=== PATIENT | male | born 1965 | race Caucasian/White ===

== ENCOUNTER 2021-12-28 06:25 | Day surgery (SDC) | payer OTHER ==
[~2021-12-28] VITALS: Ht 167.6 cm; Wt 79.1 kg
--- NOTE | ~2021-12-28 | OR ---
[facility] [address], [place] [address] Draft DATE OF OPERATION: 12/28/2021 SURGEON: Dolores Phillips MD, PH.D. PREOPERATIVE DIAGNOSIS: Prostate adenocarcinoma. POSTOPERATIVE DIAGNOSIS: Prostate adenocarcinoma. PROCEDURE: Rectal ultrasound-guided implantation of radioactive iodine-125 seeds into the prostate gland. ANESTHESIA: General. ESTIMATED BLOOD LOSS: Minimal. COMPLICATIONS: None. ANTIBIOTICS: IV levofloxacin. INDICATIONS FOR PROCEDURE: Juan Manuel Kirkland is a 56-year-old gentleman who was diagnosed with a stage T1c, [place] grade 4+3 equals 7, PSA 35.0 prostate adenocarcinoma. He has received neoadjuvant and concurrent hormone therapy along with external beam radiation therapy to a dose of 45 Gy to the pelvic lymph nodes, prostate gland, and seminal vesicles, ending on November 21, 2021. He is receiving a permanent radioactive seed implant boost today. PRESCRIPTION DOSE: 110 Gy with iodine-125 seeds with 0.255 mCi activity. OPERATIVE DESCRIPTION: Following induction of adequate anesthesia, the patient was placed in the treatment planning dorsal lithotomy position. The perineum was prepped with Betadine and a Ortiz catheter was inserted into the bladder with some difficulty. Ultimately, a 12-[place] PATIENT NAME: JUAN MANUEL KIRKLAND OPERATIVE REPORT DATE OF : 69 REPORT #: [id number] PHYSICIAN: DOLORES PHILLIPS PCP: Kelly HARTLEY MD REPORT IS CONFIDENTIAL AND NOT TO BE RELEASED WITHOUT AUTHORIZATION [facility] [address], [place] [address] Draft catheter was successfully placed. The scrotum was elevated onto the abdominal wall and secured with Ioban. The fixation support system was fixed to the table and the ultrasound probe was affixed to the system. Transrectal ultrasound examination of the prostate was performed with a 6 MHz probe, taking sagittal and transverse views to localize the prostate gland and to make sure that the images conformed to the preoperative plan. Once the proper angulation and position were obtained, the apparatus was fixed in position. The template was then attached to the apparatus. Then, individual preloaded needles were inserted, one needle at a time through the template and perineal skin and into the prostate gland according to the preoperative plan. Unfortunately, once the needles were first placed into the patient, the patient lifted his pelvis and moved several inches away from the probe. Additional sedation was administered, and needles were removed. Some time was spent replacing the ultrasound probe and ensuring that the prostate gland was in the proper position relative to the template needle positions. [place] were ultimately placed again into the prostate gland. Each individual needle was identified on the ultrasound images and inserted into position as close as possible to the pretreatment plan on axial images. Two anchor needles were placed initially to help stabilize the prostate gland. Then, starting anteriorly, one row of needles was placed first. The proper depth of each needle was confirmed on sagittal images and also by measuring the distance from the template to the hub of each needle with a ruler. Then, needles were slowly withdrawn with the stylet in place, so that the stranded seeds were placed in the prostate gland in the proper position. Then, subsequent rows of needles were placed, one at a time, with placement of all the seeds from each row before proceeding to the next row. AP pelvic x-rays were taken periodically to confirm the proper position of the radioactive seeds. The prostate gland seemed to be quite flexible and I visualized stranded seeds changing positions either superiorly or anteriorly after they were released from the preloaded needles. Therefore, a total of 5 additional free seeds were placed in the left anterior and left posterior locations, primarily in the mid to apical locations. The treatment plan called for 78 seeds to be implanted, and a total of 83 seeds were placed into the prostate gland using a total of 29 needles for a total activity of 21.165 mCi. There was some relatively minor bony interference encountered along the lateral portions of the prostate gland when inserting a couple of needles. Some of these seeds were placed slightly medial of the planned needle positions, but still at the lateral edge of the gland. Following the insertion of the seeds, an AP pelvic x-ray was taken, which revealed seeds to be in the proper position within the pelvis. The patient then had a cystoscopy performed by Dr. Christopher (see separate operative report) with no seeds seen in the PATIENT NAME: JUAN MANUEL KIRKLAND OPERATIVE REPORT DATE OF : 69 REPORT #: [id number] PHYSICIAN: DOLORES PHILLIPS PCP: Kelly HARTLEY MD REPORT IS CONFIDENTIAL AND NOT TO BE RELEASED WITHOUT AUTHORIZATION [facility] [address] [place] [address] Draft urethra or bladder. The patient tolerated the procedure well and was taken to the recovery room in good condition. The patient will have a voiding trial prior to discharge. The patient will follow up with me in one month and will also have a CT scan of the pelvis performed for dosimetric evaluation. He was told to call our office if he has any difficulties or concerns. CONDITION: Stable. Dolores Phillips MD, PH.D. JOHN/MODL /[id number] cc: MD Kelly Oseguera MD Copies: Kelly HARTLEY MD ~ PATIENT NAME: JUAN MANUEL KIRKLAND OPERATIVE REPORT DATE OF : 69 REPORT #: [id number] PHYSICIAN: DOLORES PHLILIPS PCP: Kelly HARTLEY MD REPORT IS CONFIDENTIAL AND NOT TO BE RELEASED WITHOUT AUTHORIZATION
--- NOTE | ~2021-12-28 | OR ---
[facility] [facility] [address] [place], [place] [address] Draft DATE OF OPERATION: 12/28/2021 SURGEON: Symone Diaz MD PREOPERATIVE DIAGNOSES: 1. Prostate cancer. 2. Active placement of brachytherapy seeds. POSTOPERATIVE DIAGNOSES: 1. Prostate cancer. 2. Active placement of brachytherapy seeds. 3. No evidence of radioactive seeds present within the bladder or urethra. NAMES OF PROCEDURES: 1. Diagnostic flexible cystoureteroscopy. 2. Urethral dilation using [place] sounds, from 12-Palestinian to 22-Palestinian. ANESTHESIA: General. ESTIMATED BLOOD LOSS: None. COMPLICATIONS: None. SPECIMENS: None. DRAINS: None. INDICATIONS FOR PROCEDURE: Mr. Kirkland is a 56-year-old gentleman who has been diagnosed with prostate cancer and has since undergone external beam radiation therapy by Dr. Steve Phillips. He now presents today to undergo transperineal brachytherapy seed placement. Dr. Phillips has successfully placed all the seeds, and he has asked me to perform a cystoureteroscopy to be sure there are no radioactive seeds present within the bladder or urethra. OPERATIVE FINDINGS: PATIENT NAME: JUAN MANUEL KIRKLAND OPERATIVE REPORT DATE OF : 69 REPORT #: [id number] PHYSICIAN: SYMONE DIAZ MD PCP: Kelly HARTLEY MD REPORT IS CONFIDENTIAL AND NOT TO BE RELEASED WITHOUT AUTHORIZATION [address] [place] [address] Draft 1. On cystoscopy, there was no evidence of any suspicious masses, lesions, or stones. Bilateral ureteral orifices are in their normal anatomic location. There is no evidence of bladder wall trabeculation. 2. There is no evidence of any radioactive seed present within the bladder or within the urethra. 3. Upon insertion of the cystoscope, I did notice what appeared to be some inflammatory response near the bulbar urethra as it was a little bit more difficult than normal to pass the scope through the bulbar urethra. This is likely related to his recent external beam radiation treatment. DESCRIPTION OF PROCEDURE: After informed consent was obtained, the patient was placed in the high dorsal lithotomy position and he underwent transperineal placement of brachytherapy seeds. Please refer to Dr. Phillips's note for this portion of the procedure. Once complete, the patient's genitalia were then prepped and draped in a standard sterile fashion. His urethral meatus was dilated from 12-Palestinian to 22-Palestinian without difficulty. I then passed a flexible cystoscope through the urethra and into the patient's bladder under direct visualization. Panendoscopic views of the bladder and urethra were then performed. Please see above findings. I then slowly withdrew the camera to again re-evaluate the patient's urethra. The procedure was then terminated. The patient tolerated this portion of the procedure without complication. He will now be taken to the postanesthesia care unit in stable condition. MD KULDEEP Oconnor/GUS /[id number] Copies: ~ PATIENT NAME: JUAN MANUEL KIRKLAND OPERATIVE REPORT DATE OF : 69 REPORT #: [id number] PHYSICIAN: SYMONE DIAZ MD PCP: Kelly HARTLEY MD REPORT IS CONFIDENTIAL AND NOT TO BE RELEASED WITHOUT AUTHORIZATION
[~2021-12-28 06:25] MED LIST: LISINOPRIL-HCT1 EAC1 PO; ZOLOFT50 MG PO
--- NOTE | 2021-12-28 08:14 | NUR ---
PT ALERT, ORIENTED AND SOMEWHAT ANXIOUS. THE PAST 2 YRS HAVE BEEN LITERALLY A SERIES OF TRAGEDIES, AND PT NEEDED TO VENT. GAVE COMPASSIONATE CARE, OUTLINED THE DAY. HAD PRAYER WITH PT. GAVE PT GRIEF RESOURCES, WILL FOLLOW
--- NOTE | 2021-12-28 11:32 | NUR ---
12/28/21 1132 Edie Resendiz 1129 PATIENT ARRIVES TO PACU UNRESPONSIVE TO PAIN. ORAL AIRWAY IN PLACE. RESP EVEN AND UNLABORED, MASK AT 6 LITERS.
--- NOTE | 2021-12-28 12:41 | NUR ---
PATIENT BACK TO ROOM FROM PACU. REPORT RECEIVED FROM BRAYDON KEENAN. PATIENT IS AWAKE AND SITTING UP IN BED. PATIENT IS STILL SEDATED. PATIENT IS DRINKING WATER. DENIES PAIN OR NAUSEA. PROVIDED PATIENT WITH JELLO. CALL LIGHT WITHIN REACH.
--- NOTE | 2021-12-28 13:42 | NUR ---
PHONE CALL TO DR. HERNANDEZ'S OFFICE AND SPOKE TO [facility] FOR PATIENT. PATIENT IS TO [facility] AT HIS OFFICE ON HIS WAY HOME.
--- NOTE | 2021-12-28 13:45 | NUR ---
1330-PATIENT IS AWAKE AND RESTING IN BED. RATES PAIN 5/10. DENIES NAUSEA. PAIN MEDICATION GIVEN PER EMAR. PATIENT HAS URGE TO URINATE BUT HAS NOT SINCE BEING BACK IN HIS ROOM. PATIENT IS DRINKING WATER. CALL LIGHT WITHIN REACH. 1350-PATIENT NOTED HIS GOWN WAS WET FROM URINE. NEW GOWN GIVEN TO PATIENT. PATIENT HAS A BEDSIDE URINAL.
--- NOTE | 2021-12-28 14:00 | NUR ---
PATIENT VOIDED 125ML IN BEDSIDE URINAL. PATIENT THEN UP AND WALKED AROUND DAY SURGERY WITH RN. GAIT UNSTEADY. TOLERATED WELL. 1405-PATIENT TO RESTROOM AND VOIDED UNKNOWN AMOUNT. 1410-PATIENT BACK TO ROOM AND READY TO GO HOME. RATES PAIN 2/10 AND STATES THIS IS TOLERABLE. 1420-PROVIDED PATIENT WITH DISCHARGE INSTRUCTIONS. ALL QUESTIONS ANSWERED. PATIENT AMBULATES TO WHEELCHAIR AND GIVEN RIDE TO FRONT OF HOSPITAL WHERE HIS BROTHER IN LAW WAS WAITING.
== END 2021-12-28 14:20 | disposition home or self-care (01) ==
LOC: DS 06:25 → EDSTATUS 07:30 → DS 07:30 → NUC 08:00 → DS 14:20
PROVIDERS: ATTEND Radiology Radiation Oncology
PROC: 0T7D8ZZ Dilation of Urethra, Via Natural or Artificial Opening Endoscopic (ICD-10-PCS; principal; 2021-12-28 08:00)
DX: C61 Malignant neoplasm of prostate (principal)
CPT/HCPCS: 00902; 76000; 76873; 77470; C2638; J1956; J2001; J2250; J2704; J7121